=== PATIENT | female | born 1980 | race African-American/Black ===

== ENCOUNTER 2023-08-27 21:23 | Emergency (ER) | payer MEDICAID ==
[~2023-08-27] VITALS: Ht 170.2 cm; Wt 85.0 kg
[2023-08-27 21:40] VITALS: BP 141/75; PULSE 85; RESP 14; TEMP 98.5; O2SAT 100
[2023-08-28] MEDS ORDERED: NEOM28.37 TP (03:20)
[2023-08-28] MEDS ORDERED: SLS TP (03:20)
[2023-08-28] MEDS ORDERED: CEPH500C2 MT (03:20)
== END 2023-08-28 04:06 | disposition home or self-care (01) ==
LOC: ER 21:23
DX: F03.90 Unspecified dementia, unspecified severity, without behavioral disturbance, psychotic disturbance, mood disturbance, and anxiety (principal); E05.90 Thyrotoxicosis, unspecified without thyrotoxic crisis or storm; Z98.51 Tubal ligation status
CPT/HCPCS: 99283

== ENCOUNTER 2024-07-01 19:54 | Emergency (ER) | payer MEDICAID ==
[~2024-07-01] VITALS: Ht 170.2 cm; Wt 79.5 kg
[~2024-07-01 19:54] MED LIST: CEPH500C2 MT; FLUC100T PO; NEOM28.37 TP; NITR-87 MT; SLS TP
[2024-07-01 20:12] VITALS: PULSE 98; O2SAT 99
[2024-07-01 20:29] VITALS: BP 144/87; TEMP 99.5; O2SAT 98
[2024-07-01] MEDS ORDERED: AMOX500T2 MT (22:04)
[2024-07-01] MEDS ORDERED: IBUP-2030 MT (22:04)
[2024-07-01] MEDS: DEXAMETHASONE 4MG/ML 1ML VIAL IM ONE (22:23)
[2024-07-01] MEDS: KETOROLAC 30MG/ML VIAL IM ONE (22:23)
[2024-07-01 22:45] VITALS: RESP 17
== END 2024-07-01 22:46 | disposition home or self-care (01) ==
LOC: ER 19:54
DX: J36 Peritonsillar abscess (principal); Z79.899 Other long term (current) drug therapy
CPT/HCPCS: 81025; 87430; 96372; 99284; J1100; J1885; Z7610

== ENCOUNTER 2024-07-13 05:21 | Emergency (ER) | payer MEDICAID ==
[~2024-07-13] VITALS: Ht 172.7 cm; Wt 77.0 kg
[~2024-07-13 05:21] MED LIST changes: +AMOX500T2 MT; +IBUP-2030 MT
[2024-07-13 05:25] VITALS: O2SAT 100
[2024-07-13 06:45] VITALS: BP 123/69; PULSE 88; RESP 14; TEMP 37.05852; O2SAT 100
[2024-07-13] MEDS: TETRACAINE 0.5% OPHTH DROPS 4ML LEFTEYE ONE (06:45)
[2024-07-13] MEDS: FLUORESCEIN SODIUM 1MG/STRIP LEFTEYE ONE (06:45)
[2024-07-13] MEDS ORDERED: ERYT1OIN6 LEFT EAR (07:02)
== END 2024-07-13 07:30 | disposition home or self-care (01) ==
LOC: ER 05:27
DX: S05.02XA Injury of conjunctiva and corneal abrasion without foreign body, left eye, initial encounter (principal); Z79.899 Other long term (current) drug therapy; X58.XXXA Exposure to other specified factors, initial encounter; Y93.89 Activity, other specified; Y92.89 Other specified places as the place of occurrence of the external cause; Y99.8 Other external cause status
CPT/HCPCS: 99283

== ENCOUNTER 2024-08-24 16:22 | Emergency (ER) | payer MEDICAID ==
[~2024-08-24] VITALS: Ht 167.6 cm; Wt 77.0 kg
[~2024-08-24 16:22] MED LIST changes: +ERYT1OIN6 LEFT EAR
[2024-08-24 16:32] VITALS: O2SAT 99
[2024-08-24] MEDS ORDERED: CEPH500C2 MT (16:34)
[2024-08-24] MEDS ORDERED: IBUP-2029 MT (16:34)
[2024-08-24 17:24] VITALS: BP 122/74; PULSE 85; RESP 16; TEMP 37.05852; O2SAT 99
== END 2024-08-24 17:25 | disposition home or self-care (01) ==
LOC: ER 16:22
DX: L30.9 Dermatitis, unspecified (principal); L03.818 Cellulitis of other sites; I10 Essential (primary) hypertension
CPT/HCPCS: 99283

== ENCOUNTER 2025-02-05 14:52 | Emergency (ER) | payer OTHER, MEDICAID ==
[~2025-02-05] VITALS: Ht 170.2 cm; Wt 82.0 kg
[~2025-02-05 14:52] MED LIST changes: +IBUP-2029 MT
[2025-02-05 15:02] VITALS: O2SAT 100
[2025-02-05 17:25] VITALS: BP 119/74; PULSE 76; RESP 16; TEMP 36.4; O2SAT 100
[2025-02-05] MEDS ORDERED: CYCL10TA21 MT (17:50)
[2025-02-05] MEDS: IBUPROFEN 600MG TABLET PO ONE (17:50)
== END 2025-02-05 18:10 | disposition home or self-care (01) ==
LOC: ER 14:52
DX: M79.18 Myalgia, other site (principal); F41.9 Anxiety disorder, unspecified; F32.A Depression, unspecified; I10 Essential (primary) hypertension; E05.90 Thyrotoxicosis, unspecified without thyrotoxic crisis or storm; Z79.899 Other long term (current) drug therapy; V89.2XXA Person injured in unspecified motor-vehicle accident, traffic, initial encounter; Y93.89 Activity, other specified; Y92.89 Other specified places as the place of occurrence of the external cause; Y99.8 Other external cause status
CPT/HCPCS: 73030; 99283

== ENCOUNTER 2025-04-13 07:45 | Emergency (ER) | payer MEDICAID, OTHER ==
[~2025-04-13] VITALS: Ht 177.8 cm; Wt 82.0 kg
[~2025-04-13 07:45] MED LIST changes: +CYCL10TA21 MT
[2025-04-13 07:51] VITALS: O2SAT 99
[2025-04-13] MEDS ORDERED: AMOX1TAB16 PO (08:04)
[2025-04-13] MEDS ORDERED: TOPUD PO (08:04)
[2025-04-13 08:15] VITALS: BP 172/88; PULSE 122; RESP 18; TEMP 36.9; O2SAT 100
== END 2025-04-13 08:15 | disposition home or self-care (01) ==
LOC: ER 07:45
DX: H66.92 Otitis media, unspecified, left ear (principal); I10 Essential (primary) hypertension; F41.9 Anxiety disorder, unspecified; F32.A Depression, unspecified; E03.9 Hypothyroidism, unspecified; Z79.899 Other long term (current) drug therapy
CPT/HCPCS: 99282; 99283